=== PATIENT | female | born 1965 ===

== ENCOUNTER 2018-05-16 09:05 | Outpatient (CLI) | payer OTHER | END 2018-05-16 09:08 | disposition home or self-care (01) | LOC: EKG 09:05 | DX: I10 Essential (primary) hypertension (principal) ==

== ENCOUNTER 2018-10-13 06:31 | Emergency (ER) | payer OTHER ==
[~2018-10-13] VITALS: Ht 152.4 cm; Wt 68.0 kg
== END 2018-10-13 13:24 | disposition home or self-care (01) ==
LOC: ER 06:31
DX: N20.1 Calculus of ureter (principal); R50.9 Fever, unspecified

== ENCOUNTER 2018-10-14 11:57 | Inpatient (IN) | payer OTHER ==
[~2018-10-14] VITALS: Ht 121.9 cm; Wt 5.0 kg
== END 2018-10-17 13:31 | disposition home or self-care (01) | DRG 689 ==
LOC: ER 11:57 → SEC-K 13:55 → ER 13:55 → CIR.AMB 14:04 → OB/GYN 16:17 → O/R 16:17 → SURH 16:25 → OB/GYN 16:56
PROVIDERS: Urology
PROC: 0T9780Z Drainage of Left Ureter with Drainage Device, Via Natural or Artificial Opening Endoscopic (ICD-10-PCS; principal; 2018-10-14 13:30)
DX: N10 Acute pyelonephritis (principal); A41.59 Other Gram-negative sepsis; N20.1 Calculus of ureter; B96.1 Klebsiella pneumoniae [K. pneumoniae] as the cause of diseases classified elsewhere

== ENCOUNTER 2020-11-15 10:28 | Outpatient (CLI) | payer OTHER | END 2020-11-15 10:30 | disposition home or self-care (01) | LOC: PPH VACUNA 10:28 | DX: Z23 Encounter for immunization (principal) ==

== ENCOUNTER 2023-01-10 11:43 | Outpatient (CLI) | payer OTHER | END 2023-01-10 11:51 | disposition home or self-care (01) | LOC: TOM 11:43 | PROVIDERS: ATTEND Obstetrics & Gynecology Gynecology | DX: N20.1 Calculus of ureter (principal) ==

== ENCOUNTER → 2023-01-24 | Outpatient (CLI) | payer OTHER | END | disposition home or self-care (01) | LOC: TOM 11:09 | PROVIDERS: ATTEND Obstetrics & Gynecology Gynecology | DX: N20.0 Calculus of kidney (principal) ==